=== PATIENT | female | born 1985 | race Caucasian/White ===

== ENCOUNTER → 2020-04-15 08:29 | Outpatient (BNVA) | payer BC, SELFPAY | PROVIDERS: Family Provider Family Medicine; PCP Family Medicine; Visit Provider Surgery | DX: R19.03 Right lower quadrant abdominal swelling, mass and lump (principal) | CPT/HCPCS: 87635 ==

== ENCOUNTER → 2020-04-20 11:01 | Outpatient (BNVA) | payer BC, SELFPAY | PROVIDERS: Family Provider Family Medicine; PCP Family Medicine; Visit Provider Surgery | DX: Z01.812 Encounter for preprocedural laboratory examination (principal); Z20.828 Contact with and (suspected) exposure to other viral communicable diseases | CPT/HCPCS: 87635 ==

== ENCOUNTER 2020-05-12 06:12 | Day surgery (SDC) | payer BC, SELFPAY ==
[2020-04-20 12:42] VITALS: BMI 28.3
[2020-04-20 13:00] VITALS: BMI 28.3
[2020-05-12 06:29] VITALS: BP 128/86; PULSE 84; RESP 18; TEMP 36.4; O2SAT 97
[2020-05-12 06:31] LABS: OR HCG Qualitative Urine Negative (Negative)
[2020-05-12] MEDS: sodium chloride 0.9% 1,000 ML 30 ML IV (06:38)
--- NOTE | 2020-05-12 07:01 | W.PM.OPSFHP ---
Same Day Surgery H&P Indication for Procedure/HPI DATE OF PROCEDURE: May 12, 2020 CHIEF COMPLAINT/INDICATIONFOR SURGICAL PROCEDURE: abdominal wall mass PREOP DIAGNOSIS: abdominal wall mass PLANNED PROCEDRUE: Operation Date: 05/12/20 07:55 Proposed Procedures p excision of abdominal wall mass 42982 R19.03(Not Applicable) - Beka Arredondo MD Medications/Allergies* Home Medications Medication Instructions Recorded Confirmed Type tretinoin 0.05 % topical cream 1 applic TOPICAL DAILY gm 03/03/20 05/12/20 History Allergies/Adverse Reactions Allergy/AdvReac Type Severity Reaction Status Date / Time codeine Allergy Nausea/vomi Verified 05/11/20 09:12 ting Current Medications: Generic Name Dose Route Start Last Admin Trade Name Freq PRN Reason Stop Dose Admin Sodium Chloride 1,000 mls @ 30 mls/hr 05/12/20 06:30 05/12/20 06:38 Sodium Chloride 0.9% IV 05/13/20 06:29 30 mls/hr .Q24H VERENA Administration Pertinent History/Comorbid Conditions* Medical History (Updated 03/06/20 @ 16:58 by Spencer Whittington MD) History of menorrhagia Treated with endometrial ablation in 05/2018. Surgical History (Updated 03/06/20 @ 16:51 by Spencer Whittington MD) H/O section (08/26/07) Performed at [facility] in [place], [place]. H/O section (04/03/16) Performed at [facility] in [place], [place]. S/P endometrial ablation (05/21/18) Hysteroscopy with NovaSure endometrial ablation. Dx: Menorrhagia. Performed by Dr. Whittington [facility] [place] in [place], [place]. Second-degree uterine prolapse noted. S/P tubal ligation (~05/2016) Family History (Updated 03/06/20 @ 16:54 by Spencer Whittington MD) Hyperlipidemia Father Breast cancer Grandmother Paternal Family/Other Paternal aunt Hypertension Father Thyroid disease Mother Grandmother Maternal Social History Smoking and tobacco status: never smoked Alcohol intake: current Pertinent Exam Findings alert, oriented x 3 and regular rate & rhythm Recommendations Surgery/Procedure today Coding Level of Care Code Acute Special Education Professional for Chg Barbie
--- NOTE | 2020-05-12 07:16 | P.ANESASSM_ITS ---
Pre-Anesthetic Assessment Pre-Anesthetic Assessment: Height/Weight: Height 1.63 m Weight 79.379 kg Temp Pulse Resp BP Pulse Ox 97.6 F 84 18 128/86 97 05/12/20 06:29 05/12/20 06:29 05/12/20 06:29 05/12/20 06:29 05/12/20 06:29 Preop Diagnosis: abdominal wall mass Proposed Procedure: Operation Date: 05/12/20 07:55 Proposed Procedures p excision of abdominal wall mass 77015 R19.03(Not Applicable) - Beka Arredondo MD Familial anesthetic complications: None Was Beta Essie taken within 24 hours: N/A Last intake: Intake Last Liquid Date 05/11/20 Last Liquid Time 21:30 Last Solid Date 05/11/20 Last Solid Time 21:30 Social: Social History: No alcohol and No tobacco Exam: Pre-Anes Outpt Exam: alert, oriented x 3, clear to auscultation bilaterally and regular rate & rhythm Airway: Cervical ROM: WNL MP: 2 Dentition: Full Anesthetic Plan: ASA status: 1 Anesthesia: MAC Risk of > 500 ml blood loss (7ml/kg in children): No Meds/Allergies Current Medications: Current Medications Generic Name Dose Route Start Last Admin Trade Name Freq PRN Reason Stop Dose Admin Sodium Chloride 1,000 mls @ 30 ml s/hr 05/12/20 06:30 05/12/20 06:38 Sodium Chloride 0.9% IV 05/13/20 06:29 30 mls/hr .Q24H VERENA Administration PFSH Anesthesia PFSH: Medical History History of menorrhagia Treated with endometrial ablation in 05/2018. Surgical History H/O section (08/26/07) Performed at [facility] in [place], [place]. H/O section (04/03/16) Performed at [facility] in [place], [place]. S/P endometrial ablation (05/21/18) Hysteroscopy with NovaSure endometrial ablation. Dx: Menorrhagia. Performed by Dr. Whittingotn [facility] [place] in [place], [place]. Second-degree uterine prolapse noted. S/P tubal ligation (~05/2016) Family History Father Hypertension Hyperlipidemia Mother Thyroid disease Grandmother Thyroid disease Maternal Breast cancer Paternal Family/Other Breast cancer Paternal aunt Social History Smoking and tobacco status: never smoked Alcohol intake: current Female Reproductive History: Date of last menstrual period: 04/24/18 Data Anesthesia Other Labs: Laboratory Results - last 48 hr 05/12/20 06:17 Urine HCG, Qual Negative Cardiac Studies: No Data to Display
[2020-05-12] MEDS: lidocaine 1% INJ 20 mL IM (08:01)
[2020-05-12 08:50] VITALS: BP 110/76; PULSE 74; RESP 18; TEMP 36.6; O2SAT 100
[2020-05-12] MEDS: scopolamine 1.5 Patch 1 PATCH TRANSDERMA (09:00)
[2020-05-12] MEDS: ondansetron 2 mg/ML SDV 2 mL 4 MG IVP (09:00)
[2020-05-12] MEDS: HYDROcodone-acetaminophen 5-325 mg Tablet 1 TAB PO (09:05)
[2020-05-12 09:09] VITALS: BP 134/74; PULSE 59; RESP 18; O2SAT 100
[2020-05-12 09:51] VITALS: BP 110/76; PULSE 61; RESP 18; O2SAT 98
--- NOTE | 2020-05-12 11:21 | PM.OP ---
Operative Report Date of procedure: May 12, 2020 Pre-op Diagnosis: Right lower quadrant subcutaneous abdominal wall mass Post-op Diagnosis: Right lower quadrant subcutaneous abdominal wall mass - adipose tissue and scar tissue over the external oblique aponeurosis Procedure Done: Excision of abdominal wall mass Specimens removed/disposition: abdominal wall mass - adipose tissue and scar tissue over the external oblique aponeurosis Surgeon: Beka Arredondo Anesthesia: MAC Estimated blood loss (mL): 10 Condition: stable Disposition: PACU Procedure: The patient was taken to the operating room and placed under MAC after IV antibiotic had been administered. The palpable mass in the right lower quadrant was marked preoperatively in confirmation with the patient. Using 15 blade a 3 cm incision was made in the right lower quadrant over the previously marked site, subcutaneous tissue was divided using electrocautery and the subcutaneous mass suggestive of a lipoma was excised from the surrounding subcutaneous tissue. The external oblique aponeurosis was identified and there appeared to be an area of scar tissue involving the aponeurosis which was excised and sent to pathology. The defect in the aponeurosis was closed with running 0 Vicryl suture. The wound was irrigated saline, subcutaneous reapproximated using running 3-0 Vicryl suture and skin was closed using running subcuticular 4-0 Monocryl suture and surgical glue. The patient was transferred to recovery room in stable condition.
--- NOTE | 2020-05-12 16:08 | ANE.PACU2 ---
Inpatient post-anesthesia follow up: Airway intact: Yes Vital signs: Temperature 97.8 F Pulse Rate 61 Respiratory Rate 18 Blood Pressure 110/76 Pulse Oximetry 98 Oxygen Delivery Me thod Room Air Oxygen Flow Rate Fraction of Inspir ed Oxygen Hydration adequate: Yes Nausea and vomiting: No Pain level: 2 Mental status: Baseline
== END 2020-05-12 10:11 | disposition home or self-care (01) ==
PROVIDERS: Anesthesiology; Family Provider Family Medicine; PCP Family Medicine; Visit Provider Surgery
PROC: (CPT 22902; principal; 2020-05-12 07:55)
DX: D17.1 Benign lipomatous neoplasm of skin and subcutaneous tissue of trunk (principal)
CPT/HCPCS: 22902; 12345; 81025; 84703; 88307; J0690; J2250; J2405; J2704; J3010; J3490; J7030

== ENCOUNTER → 2021-07-14 13:16 | Outpatient (BNVA) | payer OTHER, SELFPAY | PROVIDERS: Family Provider Family Medicine; PCP Family Medicine; Visit Provider Nurse Practitioner Women's Health | DX: Z01.419 Encounter for gynecological examination (general) (routine) without abnormal findings (principal); Z87.42 Personal history of other diseases of the female genital tract; N94.5 Secondary dysmenorrhea | CPT/HCPCS: 87624 ==

== ENCOUNTER → 2021-09-16 10:08 | Outpatient (BNVA) | payer OTHER, SELFPAY | PROVIDERS: Family Provider Family Medicine; PCP Family Medicine; Visit Provider Obstetrics & Gynecology | DX: Z01.812 Encounter for preprocedural laboratory examination (principal); G89.29 Other chronic pain; R10.2 Pelvic and perineal pain | CPT/HCPCS: 80053; 81000; 81025; 85025; 86850; 86900 ==

== ENCOUNTER 2021-09-21 10:00 | Observation (INO) | payer OTHER, SELFPAY ==
[2021-09-19 08:06] VITALS: BMI 30.2
--- NOTE | 2021-09-19 08:24 | ANES.PREANE2 ---
Pre-Anesthetic Assessment Height/Weight: Height 1.65 m Weight 82.554 kg Preop Diagnosis: Right lower quadrant subcutaneous abdominal wall mass Operation Date: 09/21/21 07:00 Proposed Procedures p Laparoscopic Assist Vaginal Hysterectomy 20292/pelvic pain R10.2/aabn uterine bleed N93.9(Not Applicable) - Conrad Ordonez MD Familial anesthetic complications: PONV Social No alcohol and No tobacco Exam alert, oriented x 3, clear to auscultation bilaterally and regular rate & rhythm Airway Mallampati: Class II Dentition: full Pulmonary None reported CV/HEM None reported None reported Hepatic None reported GI None reported Metabolic None reported Musc/skel None reported Neuropsych None reported Anesthetic Plan ASA status: 1 Anesthesia: General Risk of > 500 ml blood loss (7ml/kg in children): No Medications/Allergies Home Medications Medication Instructions Recorded Confirmed Last Taken Type No Known Home Medications 07/14/21 09/16/21 Unknown History Allergies Allergy/AdvReac Type Severity Reaction Status Date / Time codeine Allergy Nausea/vomi Verified 09/19/21 08:05 [facility] Anesthesia Medical History (Updated 09/07/21 @ 14:24 by Conrad Ordonez MD) History of menorrhagia Treated with endometrial ablation in 05/2018. No pertinent past medical history neghx: htn,dm,thyroid,dt/pe PCP: Dr. Gonzalez Surgical History (Updated 07/14/21 @ 13:04 by Ladi Fabian APN, RAYA) H/O section (08/26/07) Performed at [facility] in [place], [place]. H/O section (04/03/16) Performed at [facility] in [place], [place]. H/O excision of mass (05/12/20) abdominal wall mass RLQ History of wisdom tooth extraction 2008 S/P endometrial ablation (05/21/18) Hysteroscopy with NovaSure endometrial ablation. Dx: Menorrhagia. Performed by Dr. Whittington [facility] in [place], [place]. Second-degree uterine prolapse noted. S/P tubal ligation (~05/2016) Family History Father Hypertension Hypercholesteremia Mother Thyroid disease Grandmother Thyroid disease Maternal Breast cancer Heart disease maternal Family/Other Breast cancer Paternal aunt Denies family history of Colon cancer Ovarian cancer Diabetes Uterine cancer Stroke Female Reproductive History Date of last menstrual period: 04/24/18 Data Anesthesia Cardiac Studies: No Data to Display
[2021-09-21] VITALS (24 sets, daily range): BP systolic 96–141; BP diastolic 62–91; PULSE 63–86; RESP 14–18; TEMP 36.4–37; O2SAT 96–100
[2021-09-21 05:55] LABS: OR HCG Qualitative Urine Negative (Negative)
[2021-09-21] MEDS: scopolamine 1.5 Patch 1 PATCH TRANSDERMA (06:10)
[2021-09-21] MEDS: sodium chloride 0.9% 1,000 ML 30 ML IV (06:14)
--- NOTE | 2021-09-21 06:34 | W.PM.OPSUD ---
Surgery/Procedure H&P Update DATE OF PROCEDURE: September 21, 2021 DATE H&P PERFORMED: 09/16/21 H&P UPDATE INFORMATION: I have reviewed H&P completed within last 30 days, I have examined patient prior to procedure and No changes to prior documentation PREOP DIAGNOSIS: Menorrhagia, chronic pelvic pain PLANNED PROCEDURE: Operation Date: 09/21/21 07:00 Proposed Procedures p Laparoscopic Assist Vaginal Hysterectomy 23829/pelvic pain R10.2/aabn uterine bleed N93.9(Not Applicable) - Conrad Ordonez MD
--- NOTE | 2021-09-21 06:52 | P.ANESUD_ITS ---
Pre-Anesthetic Update Pre-Anesthetic Assessment: Date of Surgery/Procedure: 09/21/21 Preop Edda gnosis: Menorrhagia, chronic pelvic pain Proposed Procedure: Operation Date: 09/21/21 07:00 Proposed Procedures p Laparoscopic Assist Vaginal Hysterectomy 82562/pelvic pain R10.2/aabn uterine bleed N93.9(Not Applicable) - Conrad Ordonez MD Any changes to Pre-Anesthetic Assessment?: No Last Intake: Intake Last Liquid Date 09/20/21 Last Liquid Time 20:00 Last Solid Date 09/20/21 Last Solid Time 18:30 Labs Last 48hrs: Blood Bank 09/19/21 08:20 Blood Type O Positive Rho(D) Type Positive Antibody Screen Negative Vitals: Temperature 98 F 09/21/21 06:03 Temperature Source Temporal Artery S can 09/21/21 06:03 Pulse Rate 86 09/21/21 06:03 Respiratory Rate 16 09/21/21 06:03 Blood Pressure 141/91 09/21/21 06:03 Blood Pressure Irma n 107 09/21/21 06:03 Pulse Oximetry 99 09/21/21 06:03 Oxygen Delivery Me thod 09/21/21 06:03 Exam: Pre-Anes Outpt Exam: alert, oriented x 3, clear to auscultation bilaterally and regular rate & rhythm Cardiac Studies: No Data to Display
[2021-09-21] MEDS: ceFOXitin 2,000 MG in sodium chloride 0.9% (plus) 50 ML 100 MG IV (07:28)
--- NOTE | 2021-09-21 09:17 | P.OP_ITS ---
Operative Report Date of procedure: September 21, 2021 Pre-op diagnosis: Preop Diagnosis Menorrhagia, chronic pelvic pain Post-op diagnosis: SAme Procedure done: LAVH Specimens removed/disposition: Uterus Pathology: Uterus Surgeon: Conrad Ordonez MD Estimated blood loss (mL): 700 IV fluids (mL): 1,500 Urine output (mL): 500 Complications: Bleeding Procedure: After informed consent, the patient was taken to the operating room where general anesthesia was administered. Pre-Procedure Time-Out verifying the correct patient identity, correct procedure verified with consent, correct site and side, correct patient position, availability of correct implants and any special equipment or requirements was performed and acknowledge by the OR team. She was placed in the dorsal lithotomy position and prepped and draped in sterile fashion. The patient was examined under anesthesia and found to have a normal uterus with normal adnexa. A Marcum catheter was placed in the bladder. A weighted speculum was placed in the vagina, and the anterior lip of cervix was grasped with the single toothed tenaculum. A uterine manipulator was advanced into the endocervical. Tenaculum was removed after uterine manipulator was secured. The speculum was removed from the vagina. The attention was brought to abdomen after changing gloves. The base of the umbilicus was grasped with an Allis clamp and with 2 towel clamp bilaterally tenting up the umbilicus an intraumbilical incision was made with a scalpel. While tenting up on the abdomen, a Verres needle with sleeve was admitted into the intra-abdominal cavity. A saline drop test was performed and noted to be within normal limits. Pneumoperitoneum was attained with 4 liters of carbon dioxide. The Verres needle was removed. Then a 5 mm Optiview trocar and cannula were inserted under direct visualization without complications. Trocars were removed and the laparoscope was inserted and connected to the video camera light source. A 5 mm trocar and cannula were placed in the right lower quadrant under direct visualization after infiltration of 0.5% Marcaine with epinephrine. A 5 mm trocar and cannula were placed in the left lower quadrant under direct visualization after infiltration of 0.5% Marcaine with epinephrine. The pelvic contents were visualized and noted a small uterus, deep cul-de-sac, normal bilateral fallopian tubes and ovaries, normal appendix, and both ureters were identified crossing the pelvic brim and pelvic sidewall. The left round ligament was coagulated and transected using Enseal device. The left broad ligament was opened down to the level of the uterine artery and vein. The left infundibulopelvic ligament was coagulated using Enseal and then transected. The right round ligament was coagulated and transected using Enseal, and the right broad ligament was opened down to the level of the right uterine artery and vein. The right infundibulopelvic ligament was coagulated and transected using Enseal. Peritoneum of the lower uterine segment was entered using Enseal, and the bladder was dissected off the lower uterine segment using blunt dissection. Careful inspection revealed complete hemostasis. A weighted speculum was placed in the posterior vaginal wall and the right-angle retractor used to visualize the cervix. The cervix was grasped across the anterior lip with a single-toothed tenaculum and circumferentially infiltrated with 1% Xylocaine with epinephrine at this time. The cervix was circumferentially excised with the scalpel. The vaginal mucosa was dissected superiorly with sharp dissection. The anterior peritoneal reflection was finally identified after dificult disection due to adhesions/scar tissue, and it was entered with Metzenbaum scissors. A posterior colpotomy was made through the cul-de-sac space. The posterior peritoneum was identified in similar fashion and Metzenbaum scissors were used to enter the cul-de-sac. At this time, a weighted speculum was placed, advanced posteriorly into the cul-de-sac. At this time, the left and right uterosacral ligaments were isolated and ligated with 0 Vicryl. The Enseal device was then used in a serial fashion up through the cardinal ligaments bilaterally. Finally, the uterine arteries were cross-clamped, cut, and ligated with the Enseal device. Enseal device was then used up through the broad ligaments superiorly and finally the uterus was rotated posteriorly. The left and right tubes were then cross- clamped and ligated with Enseal device. The uterus was excised and submitted for pathologic evaluation. At this time, Schofield clamps were used to grasp the left and right ovaries, and they were removed per the patient's request. Curved Zeppelin clamps were placed across the infundibulopelvic ligaments bilaterally and curved scissors were used to excise the specimen from the Zeppelin clamp. The pedicles were doubly ligated bilaterally with 0 Vicryl and hemostasis noted to be achieved. No other abnormalities were noted in the pelvic cavity. At this time, instruments were removed from the patient's abdominopelvic cavity. Vaginal cuff closure and peritoneum were incorporated into one layer with 0 Vicryl suture in a continuous running interlocking fashion. Hemostasis was noted to be achieved. Marcum catheter was then placed yielding clear oumar urine. A vaginal packing with Premarin cream was placed to provide support during the healing process. The patient tolerated the procedure well and was taken to the recovery room in a stable condition. Sponge and needle counts were correct x3.
--- NOTE | 2021-09-21 09:38 | SUR.PHASEI ---
patient awake alert responding well denies pain abdomen soft to touch continue to monitor
[2021-09-21] MEDS: ondansetron 2 mg/ML SDV 2 mL 4 MG IVP (09:46)
[2021-09-21] MEDS: fentaNYL 50 mcg/mL INJ 2mL IVP (09:56)
[2021-09-21] MEDS: ketorolac 30 mg/mL INJ IVP ×3 (10:47→21:32)
[2021-09-21] MEDS: dextrose 5%-lactated ringers 1,000 ML 125 ML IV (10:47)
[2021-09-21] MEDS: HYDROcodone-acetaminophen 5-325 mg Tablet PO ×2 (10:57→19:34)
--- NOTE | 2021-09-21 13:44 | ANE.PACU2 ---
Inpatient post-anesthesia follow up: Airway intact: Yes Vital signs: Temperature 98.3 F Pulse Rate 72 Respiratory Rate 18 Blood Pressure 101/68 Pulse Oximetry 99 Oxygen Delivery Me thod Room Air Oxygen Flow Rate 6 Fraction of Inspir ed Oxygen Hydration adequate: Yes Nausea and vomiting: No Pain level: 3 Mental status: Baseline
[2021-09-21 15:17] LABS: Hematocrit 32.9 % (37.0-47.0); Hemoglobin 10.7 g/dL (11.5-15.3); Mean Corpuscular HGB Conc 32.5 g/dL (30.0-36.0); Mean Corpuscular Hemoglobin 29.5 pg (28.0-34.0); Mean Corpuscular Volume 90.6 fl (81-99); Mean Platelet Volume 10.2 fL (7.4-10.4); Platelet Count 273 10^3/cmm (130-400); Red Blood Count 3.63 10^6/uL (4.1-5.3); Red Cell Distribution Width 13.5 % (12.1-15.1); White Blood Count 10.7 10^3/uL (4.0-10.0)
[2021-09-21] MEDS: docusate sodium 100 mg Capsule PO (16:59)
[2021-09-21] MEDS: simethicone 80 mg Chew PO (21:32)
[2021-09-22 04:27] VITALS: BP 96/61; PULSE 65; O2SAT 97
[2021-09-22 04:53] LABS: Hematocrit 28.9 % (37.0-47.0); Hemoglobin 9.3 g/dL (11.5-15.3); Mean Corpuscular HGB Conc 32.2 g/dL (30.0-36.0); Mean Corpuscular Hemoglobin 29.4 pg (28.0-34.0); Mean Corpuscular Volume 91.5 fl (81-99); Mean Platelet Volume 11.3 fL (7.4-10.4); Platelet Count 219 10^3/cmm (130-400); Red Blood Count 3.16 10^6/uL (4.1-5.3); Red Cell Distribution Width 13.8 % (12.1-15.1); White Blood Count 9.7 10^3/uL (4.0-10.0)
--- NOTE | 2021-09-22 07:16 | P.DS_ITS ---
Discharge Providers LIBRARY SERVICES COORDINATOR Date of Admission: 09/21/21 10:00 Date of Discharge: 09/22/21 Attending Provider at Admission: Conrad Ordonez MD Attending Provider at Discharge: Conrad Ordonez MD Primary LIBRARY SERVICES COORDINATOR: Conrad Ordonez MD Primary Care Provider: Logan Gonzalez Reason for Visit Reason for Visit: pelvic pain R10.2/Abn uterine bleeding N93.9 Brief History: is a 36 year old with a history of abnormal uterine bleeding/menorrhagia unresponsive to medical management previously treated with ablation, associated history of chronic pelvic pain, dyspareunia, post ablation pain syndrome. Hospital Course Hospital Course is a 36 year old , admitted for planned laparoscopic-assisted vaginal hysterectomy. Surgery was performed complicated by some bleeding. Postop observation uneventful. She is afebrile and hemodynamically stable postoperative day 1. Tolerating diet well. Ambulating without difficulty. Pain well under control. Passing flatus. Good urine output. Physical Exam Narrative: GA: Alert and oriented ?3. HEENT: WNL. Heart: Regular rate and rhythm. Lungs: Clear to auscultation bilaterally. Abdomen: Bowel sounds present, minimal tenderness, incision clean and dry, no redness, pain or edema. GERIATRIC NURSE: No bleeding. Extremities: No edema, no cyanosis, no calves pain. Urinary Catheter Management: Marcum: Cath Placed During This Visit: yes, but has since been removed by the nurse Reason for Continuing Indwelling Catheter: Decision to DC Catheter Urinary Catheter Date of Insertion: 09/21/21 Urinary Catheter Time of Insertion: 07:49 Date Urinary Catheter Removed: 09/22/21 Time Urinary Catheter Discontinued: 04:00 History History History 2 Term 1 Miscarriages/Ectopic 0 1 Living Children 2 Discharge Data Studies Completed and Pending Pending at discharge Category Date Time Status ES surgery / GI images Routine Exams 09/21/21 06:47 Taken Pathology: Surgical [PTH] Routine Pth 09/21/21 09:26 Received Laboratory Results WBC 9.7 10^3/uL (4.0-10.0) 09/22/21 04:00 RBC 3.16 10^6/uL (4.1-5.3) L 09/22/21 04:00 Hgb 9.3 g/dL (11.5-15.3) L 09/22/21 04:00 Hct 28.9 % (37.0-47.0) L 09/22/21 04:00 MCV 91.5 fl (81-99) 09/22/21 04:00 MCH 29.4 pg (28.0-34.0) 09/22/21 04:00 MCHC 32.2 g/dL (30.0-36.0) 09/22/21 04:00 RDW 13.8 % (12.1-15.1) 09/22/21 04:00 Plt Count 219 10^3/cmm (130-400) 09/22/21 04:00 MPV 11.3 fL (7.4-10.4) H 09/22/21 04:00 Urine HCG, Qual Negative (Negative) 09/21/21 05:54 Blood Type O Positive 09/19/21 08:20 Rho(D) Type Positive 09/19/21 08:20 Antibody Screen Negative 09/19/21 08:20 Vitals Last Vital Signs Temp 98.3 F 09/21/21 12:18 Pulse 65 09/22/21 04:27 Resp 16 09/21/21 21:46 BP 96/61 09/22/21 04:27 Pulse Ox 97 09/22/21 04:27 Discharge Plan Discharge Patient Disposition: Home Condition: Stable Prescriptions: New ibuprofen 800 mg tablet 800 mg PO TID PRN (Reason: pain) Qty: 60 0RF ferrous sulfate [Iron (ferrous sulfate)] 325 mg (65 mg iron) tablet 325 mg PO BID Qty: 60 0RF docusate sodium [Colace] 100 mg capsule 100 mg PO BID Qty: 60 0RF acetaminophen 325 mg capsule 325 mg PO Q4H PRN (Reason: fever or pain) Qty: 60 0RF Discharge Orders: Discharge Order (Routine); Ordered 09/22/21 Ordered By: Conrad Ordonez Referrals: Conrad Ordonez MD [Physician] - 2 weeks Discharge Diet: Usual diet Discharge Activity: Limit activity as instructed Patient Instructions: Opioid Safety, Laparoscopic Hysterectomy (GEN), Vaginal Hysterectomy (GEN) Activity Restrictions/Additional Instructions: 1. Please call [facility] on next working day to make your post-operative appointment in 2 weeks. 2. Please stay home until you come back to the clinic on first post-operative check up. 3. Please follow instructions on your medications CAREFULLY. 4. If you have abdominal incision, do not cover it unless dressing is necessary because of drainage. OK to shower, but avoid bath. Leave steri-strips until they fall off. If they are still on one week after surgery, you may remove them. 5. If you had vaginal surgery or vaginal repair, Dr. Ordonez may instruct you to take SITZ bath. 6. Yellow, blood tinged odorous vaginal discharge is usually normal after hysterectomy or vaginal surgeries. 7. No sexual intercourse, tampons, or douches until you are completely released from the post-operative care. 8. Avoid constipation by eating right and maybe using some Metamucil or Milk of Magnesia. 9. All prescription refills are given during the working hours. Please do no wait till it runs out. Call the clinic at [phone] before your medication runs out. The clinic will get in touch with your doctor to prescribe medications if necessary. 10. Please remain within 40 mile radius from our hospital because emergencies do happen now and then during the post-operative period. 11. If you have stairs at home, take one step at a time slowly and minimize the number of trips. It helps to stay in one floor for the next few days. No lifting except what you can lift by one hand until you are released from the post-operative care. 12. Driving is discouraged until you are well healed. It may be 3-4 weeks before you feel strong enough to drive. You should be able to turn and look through the rear window without pain and you should be able to push the brake pedal very hard without pain before you drive. No fast rules, but SAFETY should be your primary concern. DO NOT drive if you are on sedating medications such as narcotics. 13. Call the clinic (during working hours) to make urgent appointment or go to the Emergency room, if any of the following occurs: i. Vaginal bleeding becomes heavy, more than a period. ii. Incision becomes red and sore, or drains pus. iii. Your temperature is over 100.4 or you have chill. iv. IV site becomes red and swollen (a little ``knot?? is usually OK) v. Persistent nausea and vomiting vi. Persistent constipation or diarrhea vii. Rash or allergic reaction to medications. Discharge Attestations LIBRARY SERVICES COORDINATOR Time Spent in Discharge Care*: greater than 30 min Coding Level of Care Code Acute Non Licensed Nuclear Equipment Operator for Thierry Valentin
[2021-09-22] MEDS: simethicone 80 mg Chew PO (08:00)
[2021-09-22] MEDS: docusate sodium 100 mg Capsule PO (08:01)
[2021-09-22 08:15] VITALS: BP 99/65; PULSE 73; RESP 16; TEMP 36.9; O2SAT 98
== END 2021-09-22 08:22 | disposition home or self-care (01) ==
LOC: OBGYN 10:00
PROVIDERS: Admitting Provider Obstetrics & Gynecology; PCP Family Medicine; Visit Provider Obstetrics & Gynecology
PROC: 0UT9FZZ Resection of Uterus, Via Natural or Artificial Opening With Percutaneous Endoscopic Assistance (ICD-10-PCS; CPT 58550; principal; 2021-09-21 07:00)
DX: N92.0 Excessive and frequent menstruation with regular cycle (principal); R10.2 Pelvic and perineal pain; G89.29 Other chronic pain
CPT/HCPCS: 58550; S2900; 36415; 81025; 84703; 85027; 86850; 86900; 88307; G0378; J0330; J0694; J1100; J1170; J1200; J1885; J2250; J2405; J2704; J2710; J3010; J3490; J7030; Q9968

== ENCOUNTER 2022-12-07 10:29 | Outpatient (CLI) | payer BC, SELFPAY ==
[2022-12-07 11:17] LABS: Basophils % 0.7 %; Eosinophils % 0.5 %; Hematocrit 40.3 % (37.0-47.0); Hemoglobin 13.5 g/dL (11.5-15.3); Lymphocytes # 1.9 10^3/uL (0.8-4.8); Lymphocytes % 32.6 %; Mean Corpuscular HGB Conc 33.5 g/dL (30.0-36.0); Mean Corpuscular Hemoglobin 29.7 pg (28.0-34.0); Mean Corpuscular Volume 88.8 fl (81-99); Mean Platelet Volume 9.5 fL (7.4-10.4); Monocytes # 0.4 10^3/uL (0.2-0.9); Monocytes % 6.4 %; Neutrophils # 3.46 10^3/uL (1.8-7.7); Neutrophils % 59.6 %; Nucleated Red Blood Cells % 0 %; Platelet Count 278 10^3/cmm (130-400); Red Blood Count 4.54 10^6/uL (4.1-5.3); Red Cell Distribution Width 13.3 % (12.1-15.1); White Blood Count 5.8 10^3/uL (4.0-10.0)
[2022-12-07 11:39] LABS: Anion Gap 16.3 (5-19); Blood Urea Nitrogen 16 mg/dL (6-20); Calcium 9.8 mg/dL (8.5-10.5); Carbon Dioxide 25 mmol/L (22-29); Chloride 100 mmol/L (98-107); Glomerular Filtration Rate 111.3 mL/min (90-130); Glucose 93 mg/dL (65-115); Osmolality Calculated 285 mOsm/kg (285-295); Potassium 4.3 mmol/L (3.5-5.1); Sodium 137 mmol/L (136-145)
[2022-12-07 12:18] LABS: Hepatitis C Virus Antibody Non-Reactive (Nonreactive)
[2022-12-07 12:30] LABS: Hepatitis A Antibody IgM Non-Reactive (Nonreactive); Hepatitis B Core AB, Total Non-Reactive (Nonreactive); Hepatitis B Surface Antigen Non-Reactive (Nonreactive); Hepatitis C Virus Antibody Non-Reactive (Nonreactive)
[2022-12-07 12:32] LABS: Hepatitis B Surface AB < 3.5 (11.5-1000)
== END 2022-12-07 10:30 | disposition home or self-care (01) ==
PROVIDERS: PCP Family Medicine; Visit Provider Nurse Practitioner Family
DX: L40.59 Other psoriatic arthropathy (principal); L40.0 Psoriasis vulgaris; D18.01 Hemangioma of skin and subcutaneous tissue; L81.4 Other melanin hyperpigmentation; D22.5 Melanocytic nevi of trunk; L85.3 Xerosis cutis; L57.8 Other skin changes due to chronic exposure to nonionizing radiation
CPT/HCPCS: 36415; 80048; 85025; 86705; 86706; 86709; 86803; 87340